=== PATIENT | male | born 1950 | race Caucasian/White ===

== ENCOUNTER 2023-06-24 06:45 | Day surgery (SDC) | payer OTHER ==
[2023-06-22 17:14] LABS: BASOPHILS # (AUTO) 0.04 K/uL (0.00-0.20); BASOPHILS % (AUTO) 0.4 % (0.0-5.0); EOSINOPHILS # (AUTO) 0.31 K/uL (0.00-0.70); EOSINOPHILS % (AUTO) 2.8 % (0.0-8.0); HEMATOCRIT 34.3 % (42-54); IMMATURE GRANULOCYTE ABSOLUTE 0.15 K/uL (0-1); LYMPHOCYTES # (AUTO) 0.9 K/uL (1.0-4.8); LYMPHOCYTES % (AUTO) 8.3 % (21.0-51.0); MEAN CORPUSCULAR HEMOGLOBIN 28.8 pg (27.0-33.0); MEAN CORPUSCULAR HGB CONC 32.7 g/dL (32.0-36.0); MEAN CORPUSCULAR VOLUME 88.2 fL (79-99); MONOCYTES # (AUTO) 1.2 K/uL (0.1-1.0); MONOCYTES % (AUTO) 10.6 % (3.0-13.0); NEUTROPHILS # (AUTO) 8.3 K/uL (1.8-7.7); NEUTROPHILS % (AUTO) 76.5 % (40.0-77.0); PLATELET COUNT (AUTO) 326 K/uL (130-400); RED BLOOD CELL COUNT(AUTO) 3.89 MIL/uL (4.50-6.20); RED CELL DISTRIBUTION WIDTH 14.7 % (11.0-15.5); WHITE BLOOD COUNT (AUTO) 10.9 K/uL (4.8-10.8)
[2023-06-22 17:23] LABS: ALBUMIN 3.5 g/dL (3.5-5.0); POTASSIUM 3.2 mmol/L (3.5-5.1)
[2023-06-22 17:38] LABS: INR 0.94 (0.85-1.15)
[2023-06-22 17:39] LABS: PARTIAL THROMBOPLASTIN TIME 34.1 SEC (26.3-35.5)
[2023-06-23 11:43] VITALS: BP 118/68; PULSE 71; RESP 16
[~2023-06-24] VITALS: Ht 172.7 cm; Wt 77.2 kg
[2023-06-24] VITALS (16 sets, daily range): BP systolic 124–149; BP diastolic 63–82; PULSE 68–82; RESP 15–19
[~2023-06-24 06:45] MED LIST: 0.9%NACL 1000ML 1,000 ML IV ONE; ALLO100T PO; APIX2.5T PO; BUDE10.2 IH; BUPR100T13 PO; FURO80TA87 PO; GABA300C PO; HYDR-4064 PO; METF-446 PO; METH-811 PO; PRAV20TA4 PO; TAMS0.4C32 PO; TIMO.5OS OU; XALA2.5OS OU
[2023-06-24] MEDS: CEFAZOLIN SODIUM 2 GM VIAL ONE ×2 (07:11→07:55)
[2023-06-24] MEDS ORDERED: BUPIVACAINE/PF 0.25% 30ML VIAL IJ ONE (07:19)
[2023-06-24] MEDS ORDERED: SUCCINYLCHOLINE CHLORIDE 20 MG/ML 10 ML VIAL ONE (07:22)
[2023-06-24] MEDS ORDERED: LIDOCAINE PF 100MG/5ML (2%) SYRINGE 5ML ONE (07:22)
[2023-06-24] MEDS ORDERED: FENTANYL CITRATE PF 50 MCG/1 ML 2ML VIAL ONE (07:23)
[2023-06-24] MEDS ORDERED: PROPOFOL 10 MG/ML 20ML VIAL IV ONE (07:23)
[2023-06-24] MEDS ORDERED: DEXAMETHASONE SOD PHOSPHATE 10MG/ML 1ML VIAL ONE (07:24)
[2023-06-24] MEDS ORDERED: ONDANSETRON 4MG INJ ONE (07:25)
[2023-06-24] MEDS ORDERED: ALBUTEROL INHALER 90MCG/INH IH ONE (07:25)
[2023-06-24] MEDS ORDERED: HYDR-4060 PO (09:23)
== END 2023-06-24 11:34 | disposition home or self-care (01) ==
LOC: DAH 06:45
PROVIDERS: ATTEND Student in an Organized Health Care Education/Training Program
DX: M67.411 Ganglion, right shoulder (principal); Z20.822 Contact with and (suspected) exposure to COVID-19; G89.29 Other chronic pain; I11.0 Hypertensive heart disease with heart failure; I50.9 Heart failure, unspecified; J44.9 Chronic obstructive pulmonary disease, unspecified; E66.01 Morbid (severe) obesity due to excess calories; I25.10 Atherosclerotic heart disease of native coronary artery without angina pectoris; F17.200 Nicotine dependence, unspecified, uncomplicated; E11.51 Type 2 diabetes mellitus with diabetic peripheral angiopathy without gangrene; E11.319 Type 2 diabetes mellitus with unspecified diabetic retinopathy without macular edema; F17.210 Nicotine dependence, cigarettes, uncomplicated; M06.9 Rheumatoid arthritis, unspecified; M10.9 Gout, unspecified; Z79.899 Other long term (current) drug therapy; Z79.01 Long term (current) use of anticoagulants; Z88.0 Allergy status to penicillin; Z90.49 Acquired absence of other specified parts of digestive tract; Z98.890 Other specified postprocedural states; Z68.26 Body mass index [BMI] 26.0-26.9, adult
CPT/HCPCS: 82040; 80048; 85025; 85610; 85730; 84134; 86140; 36415; 23073; 82948 ×2; 88305; A4600; A4663; A6207; J7030 ×2; A4606; J3010; J1100; J0330; J3490; J2001; J2704; J2405; J0690; G0168; A4649; A5120; A4215; A4223; A4222; A4221

== ENCOUNTER → 2023-08-04 | Outpatient (CLI) | payer OTHER ==
[~2023-08-04] MED LIST changes: -0.9%NACL 1000ML 1,000 ML IV ONE; +HYDR-4060 PO; +LIDOCAINE HCL 4% LTA SOL 4 ML VIAL TP ONE
== END | disposition home or self-care (01) ==
LOC: WHH 10:07
PROVIDERS: ATTEND Nurse Practitioner Family
DX: I87.311 Chronic venous hypertension (idiopathic) with ulcer of right lower extremity (principal); E11.622 Type 2 diabetes mellitus with other skin ulcer; L97.812 Non-pressure chronic ulcer of other part of right lower leg with fat layer exposed; S81.802A Unspecified open wound, left lower leg, initial encounter; I25.10 Atherosclerotic heart disease of native coronary artery without angina pectoris; J44.9 Chronic obstructive pulmonary disease, unspecified; M10.9 Gout, unspecified; I11.0 Hypertensive heart disease with heart failure; I50.9 Heart failure, unspecified; I87.2 Venous insufficiency (chronic) (peripheral); M06.9 Rheumatoid arthritis, unspecified; E11.51 Type 2 diabetes mellitus with diabetic peripheral angiopathy without gangrene; E78.5 Hyperlipidemia, unspecified; I48.91 Unspecified atrial fibrillation; H40.9 Unspecified glaucoma; N40.0 Benign prostatic hyperplasia without lower urinary tract symptoms; G47.33 Obstructive sleep apnea (adult) (pediatric); F32.A Depression, unspecified; F17.200 Nicotine dependence, unspecified, uncomplicated; Z90.49 Acquired absence of other specified parts of digestive tract; Z79.84 Long term (current) use of oral hypoglycemic drugs; Z79.899 Other long term (current) drug therapy; W19.XXXA Unspecified fall, initial encounter; Y93.89 Activity, other specified; Y92.89 Other specified places as the place of occurrence of the external cause; Y99.8 Other external cause status
CPT/HCPCS: 11042; A4450

== ENCOUNTER → 2023-08-11 | Outpatient (CLI) | payer OTHER | END | disposition home or self-care (01) | LOC: WHH 13:28 | PROVIDERS: ATTEND Nurse Practitioner Family | DX: I87.311 Chronic venous hypertension (idiopathic) with ulcer of right lower extremity (principal); E11.622 Type 2 diabetes mellitus with other skin ulcer; L97.812 Non-pressure chronic ulcer of other part of right lower leg with fat layer exposed; S81.802D Unspecified open wound, left lower leg, subsequent encounter; S41.001A Unspecified open wound of right shoulder, initial encounter; I25.10 Atherosclerotic heart disease of native coronary artery without angina pectoris; J44.9 Chronic obstructive pulmonary disease, unspecified; M10.9 Gout, unspecified; I11.0 Hypertensive heart disease with heart failure; I50.9 Heart failure, unspecified; I87.2 Venous insufficiency (chronic) (peripheral); M06.9 Rheumatoid arthritis, unspecified; E11.51 Type 2 diabetes mellitus with diabetic peripheral angiopathy without gangrene; E78.5 Hyperlipidemia, unspecified; I48.91 Unspecified atrial fibrillation; H40.9 Unspecified glaucoma; N40.0 Benign prostatic hyperplasia without lower urinary tract symptoms; G47.33 Obstructive sleep apnea (adult) (pediatric); F32.A Depression, unspecified; F17.200 Nicotine dependence, unspecified, uncomplicated; Z90.49 Acquired absence of other specified parts of digestive tract; Z79.84 Long term (current) use of oral hypoglycemic drugs; Z79.899 Other long term (current) drug therapy; W19.XXXD Unspecified fall, subsequent encounter; W19.XXXA Unspecified fall, initial encounter; Y93.89 Activity, other specified; Y92.89 Other specified places as the place of occurrence of the external cause; Y99.8 Other external cause status | CPT/HCPCS: G0463; A6209; A6197 ==

== ENCOUNTER → 2023-08-23 | Outpatient (CLI) | payer OTHER ==
[~2023-08-23] MED LIST changes: -LIDOCAINE HCL 4% LTA SOL 4 ML VIAL TP ONE
== END | disposition home or self-care (01) ==
LOC: WHH 11:02
PROVIDERS: ATTEND Nurse Practitioner Family
DX: I87.311 Chronic venous hypertension (idiopathic) with ulcer of right lower extremity (principal); E11.622 Type 2 diabetes mellitus with other skin ulcer; L97.812 Non-pressure chronic ulcer of other part of right lower leg with fat layer exposed; S81.802D Unspecified open wound, left lower leg, subsequent encounter; S41.001D Unspecified open wound of right shoulder, subsequent encounter; I25.10 Atherosclerotic heart disease of native coronary artery without angina pectoris; J44.9 Chronic obstructive pulmonary disease, unspecified; M10.9 Gout, unspecified; I11.0 Hypertensive heart disease with heart failure; I50.9 Heart failure, unspecified; I87.2 Venous insufficiency (chronic) (peripheral); M06.9 Rheumatoid arthritis, unspecified; E11.51 Type 2 diabetes mellitus with diabetic peripheral angiopathy without gangrene; E78.5 Hyperlipidemia, unspecified; I48.91 Unspecified atrial fibrillation; H40.9 Unspecified glaucoma; N40.0 Benign prostatic hyperplasia without lower urinary tract symptoms; G47.33 Obstructive sleep apnea (adult) (pediatric); F32.A Depression, unspecified; F17.200 Nicotine dependence, unspecified, uncomplicated; Z90.49 Acquired absence of other specified parts of digestive tract; Z79.84 Long term (current) use of oral hypoglycemic drugs; Z79.899 Other long term (current) drug therapy; W19.XXXD Unspecified fall, subsequent encounter
CPT/HCPCS: G0463; A6212; A6197

== ENCOUNTER → 2023-09-08 | Outpatient (CLI) | payer OTHER | END | disposition home or self-care (01) | LOC: WHH 11:03 | PROVIDERS: ATTEND Nurse Practitioner Family | DX: I87.311 Chronic venous hypertension (idiopathic) with ulcer of right lower extremity (principal); E11.622 Type 2 diabetes mellitus with other skin ulcer; L97.818 Non-pressure chronic ulcer of other part of right lower leg with other specified severity; I25.10 Atherosclerotic heart disease of native coronary artery without angina pectoris; J44.9 Chronic obstructive pulmonary disease, unspecified; M71.011 Abscess of bursa, right shoulder; M10.9 Gout, unspecified; I11.0 Hypertensive heart disease with heart failure; I50.9 Heart failure, unspecified; I87.2 Venous insufficiency (chronic) (peripheral); M06.9 Rheumatoid arthritis, unspecified; E11.51 Type 2 diabetes mellitus with diabetic peripheral angiopathy without gangrene; E78.5 Hyperlipidemia, unspecified; I48.91 Unspecified atrial fibrillation; H40.9 Unspecified glaucoma; N40.0 Benign prostatic hyperplasia without lower urinary tract symptoms; G47.33 Obstructive sleep apnea (adult) (pediatric); F32.A Depression, unspecified; F17.200 Nicotine dependence, unspecified, uncomplicated; Z90.49 Acquired absence of other specified parts of digestive tract; Z79.84 Long term (current) use of oral hypoglycemic drugs; Z79.899 Other long term (current) drug therapy | CPT/HCPCS: G0463; A6209; A4450 ==

== ENCOUNTER → 2023-11-01 | Outpatient (CLI) | payer OTHER ==
[~2023-11-01] VITALS: Ht 172.7 cm; Wt 70.8 kg
[~2023-11-01] MED LIST changes: +ACET-66 PO; +ACET250T3 PO; +ASPI-1005 PO; +ATOR40TA71 PO; +DILT240C97 PO; +FLUT16H NS; +FLUT1BLS12 IH; +MONT-39 PO; +NALO4SPR3 NS; +NETA2.5D OP; +PRED20TA3 PO; +SPIR25TA6 PO; +TIOTROPIUM IH; +UREA85CR23 TP; +VITS42.53 TP; +[UNRECOGNIZED DRUG - OTHER] IH; +[UNRECOGNIZED DRUG - OTHER] PO
[2023-11-01 15:18] VITALS: BP 135/73; PULSE 76; RESP 17
[2023-11-01 15:42] LABS: BASOPHILS # (AUTO) 0.03 K/uL (0.00-0.20); BASOPHILS % (AUTO) 0.4 % (0.0-5.0); EOSINOPHILS # (AUTO) 0.14 K/uL (0.00-0.70); EOSINOPHILS % (AUTO) 1.7 % (0.0-8.0); HEMATOCRIT 35.6 % (42-54); LYMPHOCYTES # (AUTO) 0.9 K/uL (1.0-4.8); LYMPHOCYTES % (AUTO) 11.4 % (21.0-51.0); MEAN CORPUSCULAR HEMOGLOBIN 28.6 pg (27.0-33.0); MEAN CORPUSCULAR HGB CONC 32.3 g/dL (32.0-36.0); MEAN CORPUSCULAR VOLUME 88.6 fL (79-99); MONOCYTES # (AUTO) 0.5 K/uL (0.1-1.0); MONOCYTES % (AUTO) 5.5 % (3.0-13.0); NEUTROPHILS # (AUTO) 6.6 K/uL (1.8-7.7); NEUTROPHILS % (AUTO) 79.8 % (40.0-77.0); PLATELET COUNT (AUTO) 384 K/uL (130-400); RED BLOOD CELL COUNT(AUTO) 4.02 MIL/uL (4.50-6.20); RED CELL DISTRIBUTION WIDTH 15.6 % (11.0-15.5); WHITE BLOOD COUNT (AUTO) 8.2 K/uL (4.8-10.8)
[2023-11-01 16:02] LABS: INR 0.94 (0.85-1.15); PROTHROMBIN TIME 10.9 SEC (9.6-11.6)
[2023-11-01 16:03] LABS: ALBUMIN 3.3 g/dL (3.5-5.0); CREATININE 0.8 mg/dL (0.5-1.5); PARTIAL THROMBOPLASTIN TIME 30.5 SEC (26.3-35.5); POTASSIUM 4.3 mmol/L (3.5-5.1)
== END | disposition home or self-care (01) ==
LOC: DAH 10:00 → EDSTATUS 15:00
PROVIDERS: ATTEND Student in an Organized Health Care Education/Training Program
DX: Z01.818 Encounter for other preprocedural examination (principal); S41.031A Puncture wound without foreign body of right shoulder, initial encounter; M25.511 Pain in right shoulder; I44.4 Left anterior fascicular block; I44.1 Atrioventricular block, second degree; I48.91 Unspecified atrial fibrillation; X58.XXXA Exposure to other specified factors, initial encounter; Y93.89 Activity, other specified; Y92.89 Other specified places as the place of occurrence of the external cause; Y99.8 Other external cause status
CPT/HCPCS: 36415; 80048; 82040; 85025; 85610; 85730; 86140; 93005

== ENCOUNTER 2024-08-03 05:50 | Day surgery (SDC) | payer OTHER ==
[2024-08-01 12:51] LABS: BASOPHILS # (AUTO) 0.05 K/uL (0.00-0.20); BASOPHILS % (AUTO) 0.7 % (0.0-5.0); EOSINOPHILS # (AUTO) 0.13 K/uL (0.00-0.70); EOSINOPHILS % (AUTO) 1.8 % (0.0-8.0); IMMATURE GRANULOCYTE ABSOLUTE 0.07 K/uL (0-1); MEAN CORPUSCULAR HEMOGLOBIN 26.7 pg (27.0-33.0); MEAN CORPUSCULAR HGB CONC 31.4 g/dL (32.0-36.0); MEAN CORPUSCULAR VOLUME 85.1 fL (79-99); MONOCYTES # (AUTO) 0.7 K/uL (0.1-1.0); MONOCYTES % (AUTO) 9.3 % (3.0-13.0); NEUTROPHILS # (AUTO) 5.3 K/uL (1.8-7.7); NEUTROPHILS % (AUTO) 73.2 % (40.0-77.0); PLATELET COUNT (AUTO) 314 K/uL (130-400); RED BLOOD CELL COUNT(AUTO) 4.23 MIL/uL (4.50-6.20); WHITE BLOOD COUNT (AUTO) 7.2 K/uL (4.8-10.8)
[2024-08-01 13:02] LABS: ALBUMIN 3.5 g/dL (3.5-5.0); POTASSIUM 4.4 mmol/L (3.5-5.1)
[2024-08-01 13:03] LABS: INR 0.99 (0.85-1.15); PROTHROMBIN TIME 10.7 SEC (9.6-11.6)
[2024-08-01 13:04] LABS: PARTIAL THROMBOPLASTIN TIME 30.6 SEC (26.3-35.5)
[2024-08-03] VITALS (18 sets, daily range): BP systolic 119–141; BP diastolic 63–86; PULSE 63–76; RESP 12–17; TEMP 97.9–98.2
[~2024-08-03] VITALS: Ht 172.7 cm; Wt 69.9 kg
[~2024-08-03 05:50] MED LIST changes: +ACET-2079 PO; +ACET-2247 PO; -ACET-66 PO; -ACET250T3 PO; +ACET250T31 PO; +ADV250 IH; +ALBU18HF7 IH; -APIX2.5T PO; +APIX5TAB PO; -ASPI-1005 PO; +ATOR10 PO; -ATOR40TA71 PO; +BRIM5DRO5 OU; -BUDE10.2 IH; +DEXT1DRO OD; +DOCU-116 PO; +FLU15OS OD; -FLUT16H NS; -FLUT1BLS12 IH; +FURO20TA4 PO; -FURO80TA87 PO; -HYDR-4060 PO; -HYDR-4064 PO; +IPRA3AMP24 IH; +LATA2.5D14 OP; +LIDOP TP; -NALO4SPR3 NS; -NETA2.5D OP; +NETA2.5D OU; +POLY17PO52 PO; -PRAV20TA4 PO; -PRED20TA3 PO; +SACU1TAB PO; +SENN8.6T32 PO; +TIMO.5OS OD; -TIMO.5OS OU; +TIOT18CA3 IH; -TIOTROPIUM IH; -UREA85CR23 TP; -VITS42.53 TP; -XALA2.5OS OU; -[UNRECOGNIZED DRUG - OTHER] IH; -[UNRECOGNIZED DRUG - OTHER] PO
[2024-08-03] MEDS ORDERED: 0.9%NACL 1000ML 1,000 ML IV ONE (06:49)
[2024-08-03] MEDS ORDERED: ceFAZolin SODIUM 2 GM VIAL ONE (07:28)
[2024-08-03] MEDS ORDERED: FENTanyl CITRate PF 50 MCG/1 ML 2ML VIAL ONE ×2 (09:23→10:29)
[2024-08-03] MEDS ORDERED: MIDAZOLAM HCL 1 MG/ML 2ML VIAL ONE (09:23)
[2024-08-03] MEDS ORDERED: proPOFol 10 MG/ML 20ML VIAL IV ONE (09:34)
[2024-08-03] MEDS ORDERED: rocuRONium bROMide 10MG/1ML 5ML VL ONE ×2 (09:35→10:13)
[2024-08-03] MEDS ORDERED: FLUT15.845 NS (09:40)
[2024-08-03] MEDS ORDERED: ePHEDrine SULFate 50 MG/ML AMPULE ONE (09:46)
[2024-08-03] MEDS ORDERED: phenylEPHRINE HCL 10 MG/ML 1ML VIAL IV ONE (10:20)
[2024-08-03] MEDS ORDERED: GLYCOPYRROLATE 0.2 MG/ML 5 ML VIAL ONE (10:40)
[2024-08-03] MEDS ORDERED: NEOSTIGMINE METHYLSULFATE 1MG/ML IV ONE (10:40)
[2024-08-03] MEDS ORDERED: ROPivacaine 0.5% 5MG/ML 30ML ONE (10:45)
== END 2024-08-03 14:35 | disposition home or self-care (01) ==
LOC: DAH 05:50
PROVIDERS: ATTEND Student in an Organized Health Care Education/Training Program
DX: S41.031A Puncture wound without foreign body of right shoulder, initial encounter (principal); L08.89 Other specified local infections of the skin and subcutaneous tissue; I10 Essential (primary) hypertension; I49.5 Sick sinus syndrome; M06.9 Rheumatoid arthritis, unspecified; E11.40 Type 2 diabetes mellitus with diabetic neuropathy, unspecified; M10.9 Gout, unspecified; Z79.82 Long term (current) use of aspirin; Z79.899 Other long term (current) drug therapy; Z79.01 Long term (current) use of anticoagulants; Z88.0 Allergy status to penicillin; Z88.8 Allergy status to other drugs, medicaments and biological substances; X58.XXXA Exposure to other specified factors, initial encounter
CPT/HCPCS: 82040; 80048; 85025; 85610; 85730; 84134; 36415; 87641; 64415; 11400; 12031; 82948 ×2; 88304; A4663; J7030 ×2; J3010 ×2; J3490 ×3; J2250; J2704; J2710; J2795; J2371; J0690; A6206; A6223; A4649; A5120; A4215; A4223; A4213; A4222; A4221; A4600

== ENCOUNTER → 2024-11-05 | Outpatient (CLI) | payer OTHER ==
[~2024-11-05] MED LIST changes: +FLUT15.845 NS; -GABA300C PO
== END | disposition home or self-care (01) ==
LOC: WHH 10:26
PROVIDERS: ATTEND Family Medicine
DX: M60 Myositis (principal); E11.40 Type 2 diabetes mellitus with diabetic neuropathy, unspecified; E11.51 Type 2 diabetes mellitus with diabetic peripheral angiopathy without gangrene; E11.39 Type 2 diabetes mellitus with other diabetic ophthalmic complication; H40.89 Other specified glaucoma; H40.9 Unspecified glaucoma; I25.10 Atherosclerotic heart disease of native coronary artery without angina pectoris; J44.9 Chronic obstructive pulmonary disease, unspecified; I11.0 Hypertensive heart disease with heart failure; I50.9 Heart failure, unspecified; I87.2 Venous insufficiency (chronic) (peripheral); E78.5 Hyperlipidemia, unspecified; I48.91 Unspecified atrial fibrillation; H54.8 Legal blindness, as defined in USA; N40.0 Benign prostatic hyperplasia without lower urinary tract symptoms; G89.29 Other chronic pain; G47.33 Obstructive sleep apnea (adult) (pediatric); M11.09 Hydroxyapatite deposition disease, multiple sites; M06.9 Rheumatoid arthritis, unspecified; M10.9 Gout, unspecified; F32.A Depression, unspecified; F17.200 Nicotine dependence, unspecified, uncomplicated; Z90.49 Acquired absence of other specified parts of digestive tract; Z79.84 Long term (current) use of oral hypoglycemic drugs; Z79.899 Other long term (current) drug therapy
CPT/HCPCS: 87070; 87086 ×2; 87186 ×2; G0463; A6197; A4450

== ENCOUNTER → 2024-11-12 | Outpatient (CLI) | payer OTHER | END | disposition home or self-care (01) | LOC: WHH 09:51 | PROVIDERS: ATTEND Family Medicine | DX: M60 Myositis (principal); E11.40 Type 2 diabetes mellitus with diabetic neuropathy, unspecified; E11.51 Type 2 diabetes mellitus with diabetic peripheral angiopathy without gangrene; E11.39 Type 2 diabetes mellitus with other diabetic ophthalmic complication; H40.9 Unspecified glaucoma; I11.0 Hypertensive heart disease with heart failure; I50.9 Heart failure, unspecified; I25.10 Atherosclerotic heart disease of native coronary artery without angina pectoris; J44.9 Chronic obstructive pulmonary disease, unspecified; I87.2 Venous insufficiency (chronic) (peripheral); E78.5 Hyperlipidemia, unspecified; I48.91 Unspecified atrial fibrillation; H54.8 Legal blindness, as defined in USA; N40.0 Benign prostatic hyperplasia without lower urinary tract symptoms; G89.29 Other chronic pain; G47.33 Obstructive sleep apnea (adult) (pediatric); M11.09 Hydroxyapatite deposition disease, multiple sites; M06.9 Rheumatoid arthritis, unspecified; M10.9 Gout, unspecified; F32.A Depression, unspecified; F17.200 Nicotine dependence, unspecified, uncomplicated; Z90.49 Acquired absence of other specified parts of digestive tract; Z79.84 Long term (current) use of oral hypoglycemic drugs; Z79.899 Other long term (current) drug therapy | CPT/HCPCS: 17250; A6212 ==

== ENCOUNTER → 2024-11-19 | Outpatient (CLI) | payer OTHER ==
[~2024-11-19] MED LIST changes: +LIDOCAINE HCL 4% LTA SOL 4 ML VIAL TP ONE
== END | disposition home or self-care (01) ==
LOC: WHH 10:04
PROVIDERS: ATTEND Family Medicine
DX: M60 Myositis (principal); E11.40 Type 2 diabetes mellitus with diabetic neuropathy, unspecified; E11.51 Type 2 diabetes mellitus with diabetic peripheral angiopathy without gangrene; E11.39 Type 2 diabetes mellitus with other diabetic ophthalmic complication; H40.9 Unspecified glaucoma; I11.0 Hypertensive heart disease with heart failure; I50.9 Heart failure, unspecified; J44.9 Chronic obstructive pulmonary disease, unspecified; I87.2 Venous insufficiency (chronic) (peripheral); I25.10 Atherosclerotic heart disease of native coronary artery without angina pectoris; E78.5 Hyperlipidemia, unspecified; I48.91 Unspecified atrial fibrillation; H54.8 Legal blindness, as defined in USA; N40.0 Benign prostatic hyperplasia without lower urinary tract symptoms; G89.29 Other chronic pain; G47.33 Obstructive sleep apnea (adult) (pediatric); M11.09 Hydroxyapatite deposition disease, multiple sites; M06.9 Rheumatoid arthritis, unspecified; M10.9 Gout, unspecified; F32.A Depression, unspecified; F17.200 Nicotine dependence, unspecified, uncomplicated; Z90.49 Acquired absence of other specified parts of digestive tract; Z79.84 Long term (current) use of oral hypoglycemic drugs; Z79.899 Other long term (current) drug therapy
CPT/HCPCS: G0463; A6212

== ENCOUNTER → 2024-12-03 | Outpatient (CLI) | payer OTHER ==
[~2024-12-03] MED LIST changes: -LIDOCAINE HCL 4% LTA SOL 4 ML VIAL TP ONE
== END | disposition home or self-care (01) ==
LOC: WHH 10:07
PROVIDERS: ATTEND Family Medicine
DX: M60 Myositis (principal); E11.40 Type 2 diabetes mellitus with diabetic neuropathy, unspecified; E11.51 Type 2 diabetes mellitus with diabetic peripheral angiopathy without gangrene; E11.39 Type 2 diabetes mellitus with other diabetic ophthalmic complication; H40.9 Unspecified glaucoma; I11.0 Hypertensive heart disease with heart failure; I50.9 Heart failure, unspecified; J44.9 Chronic obstructive pulmonary disease, unspecified; I87.2 Venous insufficiency (chronic) (peripheral); I25.10 Atherosclerotic heart disease of native coronary artery without angina pectoris; E78.5 Hyperlipidemia, unspecified; I48.91 Unspecified atrial fibrillation; H54.8 Legal blindness, as defined in USA; N40.0 Benign prostatic hyperplasia without lower urinary tract symptoms; G89.29 Other chronic pain; G47.33 Obstructive sleep apnea (adult) (pediatric); M11.09 Hydroxyapatite deposition disease, multiple sites; M06.9 Rheumatoid arthritis, unspecified; M10.9 Gout, unspecified; F32.A Depression, unspecified; F17.200 Nicotine dependence, unspecified, uncomplicated; Z90.49 Acquired absence of other specified parts of digestive tract; Z79.84 Long term (current) use of oral hypoglycemic drugs; Z79.899 Other long term (current) drug therapy
CPT/HCPCS: G0463